=== PATIENT | male | born 1960 | race Caucasian/White ===

== ENCOUNTER → 2016-07-17 | Outpatient (CLI) | payer OTHER ==
[~2016-07-17] MED LIST: IOPAMIDOL (ISOVUE 370) 100 ML BTL IV ONE
--- NOTE | 2016-07-17 17:02 | CT ---
CT Chest Angiogram With Contrast Enhancement and Multiplanar Reconstructions 1557 hours History: Recurrent atrial fibrillation. (I 48.91) Evaluate for pulmonary vein stenoses. Technique: Thin slice multidetector helical CT imaging was performed through the chest while 95 mL I sovue-370 were injected intravenously without complication. The images were then transferred to an in dependent workstation where multiplanar, volume rendering and three-dimensional reconstructions were performed by the interpreting physician and reviewed at multiple windows. Dose reduction techniques w ere utilized. Findings: CT Angiogram for left atrial anatomy: The pulmonary veins are evaluated. There are 2 main pulmonary v eins on the right as well as 2 on the left. The left atrial volume is 139 mL. Pulmonary veins draining right upper lobe: 23 x 16 mm diameter with branching occurring at the origin . The right pulmonary vein draining right lower lun x 17 mm. Bifurcation occurs at the origin. Pulmonary vein draining left upper lun x 15 mm with branching occurring about 10 mm from the matheus gin. Pulmonary vein draining left lower lun x 16 mm in diameter with branching occurring 9 mm from th e origin. There is normal enhancement of the pulmonary arterial vasculature without evidence of intraluminal th rombus. The thoracic aorta has a normal contour without aneurysm or dissection. CT Chest: There are no pulmonary nodules. There are no infiltrates or effusions. There is no hilar or mediastinal lymphadenopathy. Impression: Normal pulmonary vein anatomy, as detailed above. Normal CT Chest.
== END ==
LOC: FIMAGING 15:20
PROVIDERS: ATTEND Internal Medicine Cardiovascular Disease
DX: I48.91 Unspecified atrial fibrillation (principal)
CPT/HCPCS: Q9967

== ENCOUNTER 2016-07-24 10:22 | Observation (INO) | payer OTHER ==
[2016-07-24] MEDS ORDERED: NS 1,000 ML IV ONE (10:33)
--- NOTE | 2016-07-24 10:51 | CPEKG ---
Heart Rate: 71 RR Interval: 845 P-R Interval: 140 QRSD Interval: 90 QT Interval: 376 QTC Interval: 409 P Thurston: 12 QRS [place]: 32 T Wave [place]: 3 EKG Severity - NORMAL ECG - EKG Impression: SINUS RHYTHM EKG Impression: TWI inferiorly, consider inferior ischemia. Electronically Signed By: Oz Mata 24-Jul-2016 17:44:19
[2016-07-24 11:00] LABS: % IMMATURE GRANULYOCYTES 0.2 % (0.0-1.1); ABSOLUTE IMMATURE GRANULOCYTES 0.01 10^3/uL (0.00-0.10); ADD DIFF? NO; ADD MORPH? NO; ADD SCAN? NO; ATYPICAL LYMPHOCYTE FLAG 10 (0-99); FRAGMENT RBC FLAG 0 (0-99); HEMATOCRIT 47.5 % (40.0-51.0); LEFT SHIFT FLG 0 (0-99); LIPEMIA HEMOLYSIS FLAG 90 (0-99); MEAN CELL HEMOGLOBIN 32.3 pg (27.9-34.1); MEAN CELL HEMOGLOBIN CONCENTR. 35.8 g/dL (32.4-36.7); MEAN CELL VOLUME 90.3 fL (81.5-99.8); PLATELET CLUMPS FLAG 0 (0-99); PLATELET COUNT 276 10^3/uL (150-400); RED BLOOD CELL COUNT 5.26 10^6/uL (4.40-6.38); RED CELL DISTRIBUTION WIDTH 11.6 % (11.5-15.2)
[2016-07-24] MEDS ORDERED: BUPIVACAINE 0.5% 30 ML SDV ONE (11:09)
[2016-07-24] MEDS ORDERED: LIDOCAINE 1% 30 ML SDV ONE (11:09)
[2016-07-24] MEDS ORDERED: HEPARIN/DEXTROSE 25,000 UNIT/500 ML BAG IV ONE (11:09)
[2016-07-24] MEDS ORDERED: HEPARIN 10,000 UNIT/10 ML MDV ONE ×2 (11:09→12:28)
[2016-07-24 11:12] LABS: INR 0.96 (0.83-1.16); PROTIME(PATIENT) 12.7 SEC (12.0-15.0)
[2016-07-24 11:13] LABS: APTT 25.2 SEC (23.0-38.0)
[2016-07-24 11:18] LABS: ANION GAP 14 mEq/L (8-16); CARBON DIOXIDE 28 mEq/l (22-31); CHLORIDE 104 mEq/L (97-110); CREATININE 0.9 mg/dL (0.7-1.3); GLOMERULAR FILTRATION RATE > 60; GLUCOSE 87 mg/dL (70-100); MAGNESIUM 2.2 mg/dL (1.6-2.3); POTASSIUM 4.2 mEq/L (3.5-5.2); SODIUM 146 mEq/L (134-144)
[2016-07-24] MEDS ORDERED: PROPOFOL 200 MG/20 ML VIAL ONE ×2 (12:01→13:06)
[2016-07-24] MEDS ORDERED: fentaNYL 100 MCG/2 ML INJ ONE ×2 (12:01→14:19)
[2016-07-24] MEDS ORDERED: ROCURONIUM 50 MG/5 ML VIAL ONE (12:04)
[2016-07-24] MEDS ORDERED: ONDANSETRON 4 MG/2 ML VIAL ONE (12:04)
[2016-07-24] MEDS ORDERED: DEXAMETHASONE 4 MG/ML VIAL ONE (12:04)
[2016-07-24] MEDS ORDERED: MIDAZOLAM 2 MG/2 ML VIAL ONE (12:09)
[2016-07-24] MEDS ORDERED: DESFLURANE 240 ML BOTTLE IH ONE (12:33)
[2016-07-24] MEDS ORDERED: IOPAMIDOL (ISOVUE-370) 150 ML BTL IV ONE (12:35)
[2016-07-24] MEDS ORDERED: PROTAMINE SULFATE 50 MG/5 ML VIAL IVP ONE (14:34)
[2016-07-24] MEDS ORDERED: OXYCODONE/APAP 5/325 TAB PO PRN (15:00)
[2016-07-24] MEDS ORDERED: ONDANSETRON 4 MG/2 ML VIAL IVP PRN (15:00)
--- NOTE | 2016-07-24 15:00 | EPPROC ---
Electrophysiology Procedure Note: ELECTROPHYSIOLOGIC STUDY AND BALLOON-CATHETER MEDIATED CRYOABLATION FOR PAROXYSMAL ATRIAL FIBRILLATION Procedures performed: 16142-56 EP evaluation with RA/RV/LA pace/record, with arrhythmia induction 18808-32 EP evaluation with RA/RV pace record, insert/reposition catheter, with arrhythmia induction 89064 Atrial fibrillation ablation Intracardiac echocardiogram Transseptal puncture Fluoroscopy INDICATION: Paroxysmal atrial fibrillation PROCEDURE: The patient arrived in the Electrophysiology Laboratory in the fasting state. The right groin, left groin and right infraclavicular area were prepped and draped in the usual sterile fashion. Anesthesiologist administered general anesthesia - Dr. Eli Vargas. All catheters were placed percutaneously using the Seldinger technique and advanced into position under fluoroscopic guidance. One #7 Occitan deflectable octapolar electrode catheter was placed in the His-bundle position via the left femoral vein (2mm spacing, IVC electrode for unipolar recordings). This catheter was placed in the coronary sinus after transseptal puncture and later placed in the SVC-R subclavian vein junction to pace the right phrenic nerve during right pulmonary vein ablation. One #8 Occitan AcuNaV ultrasound catheter was placed in the left femoral vein and advanced into the right atrium. One #4 Occitan sheath was inserted into the left femoral artery via percutaneous technique and used for continuous arterial blood pressure monitoring and intermittent ACT determination. Programmed stimulation was performed from the right atrium, left atrium (CS) and right ventricle. There was no evidence of AV accessory pathway. Intracardiac echo evaluation of the left atrium and pulmonary veins was performed. Baseline ACT was drawn and heparin bolus was administered and heparin drip was started prior to transseptal puncture. ACT was checked every 15 minutes and maintained in the range of 350-400 seconds. One 14Fr short sheath was placed in the right femoral vein. One 8Fr SL1 sheath was advanced into the right atrium via the 14Fr short sheath. Transseptal puncture was performed under intracardiac ultrasound, fluoroscopic and hemodynamic guidance placing the sheath into the left atrium. Custer RF needle ( C0 curve) was used. The mean left atrial pressure was 12 mmHg. Pulmonary vein angiogram was done using SL1 sheath. CT angiography of pulmonary veins was done previously. There were distinct RSPV and RIPV and a left common vein. The SL1 sheath was exchanged for a C[employer]will [employer] Flexcath sheath using an Amplatz stiff guide wire. A 28 mm Cryoballoon catheter with a 20 mm Achieve catheter was placed via the sheath into the left atrium. Intracardiac ultrasound and PV angiograms were used to assist in placing the mapping catheter at the antrum of the pulmonary veins. All pulmonary veins were isolated successfully using cryoballoon ablation using freeze/thaw/freeze cycles at 2-3-minute intervals, with good [id number]-rv-vvlivw of isolation. Coumadin ridge/Ligament of Michael region was ablated. Pre and post pulmonary vein recordings were measured on the spiral Achieve catheter to ensure complete pulmonary vein isolation. During the right-sided ablation, phrenic nerve pacing was performed to assess the phrenic nerve strength ( manually and with ICE visualization of liver movement during phrenic capture) and the phrenic nerve was intact throughout the right-sided ablation and at the end of the procedure. An esophageal temperature probe (12 electrode, Circa) was placed by the anesthesiologist at the beginning of the procedure. Esophageal temperature was monitored continuously and cryoablation was interrupted if esophageal temperature was <15 C. Esophagus was close to left common pulmonic vein. Cryoapplications 15 total cryoablation time 2550 s. ICE imaging post ablation was consistent with pre ablation imaging with no changes noted, moreover there was no left atrial/left ventricular thrombus and no pericardial effusion. The catheters were withdrawn. Protamine was given. The sheaths were removed and manual pressure was used for hemostasis. The patient was recovered from anesthesia. There were no complications. The patient was arousable and moving all four extremities at the end of the procedure. CONCLUSIONS: 1. Paroxysmal atrial fibrillation. 2. Successful pulmonary vein isolation procedure (left and right pulmonary vein antrum) using cryoballoon ablation. 3. No apparent complications. Patient Problems: Problems Problem Status Diagnosed Atrial fibrillation Acute
[2016-07-24] MEDS ORDERED: PROMETHAZINE HCL 25 MG/ML VIAL IV ONE (15:25)
[2016-07-24] MEDS ORDERED: MEPERIDINE 25 MG/ML SYR IVP ONE (15:25)
[2016-07-24] MEDS ORDERED: MEPERIDINE 25 MG/ML SYR ONE (15:26)
[2016-07-24] MEDS ORDERED: PROMETHAZINE HCL 25 MG/ML VIAL ONE (15:30)
--- NOTE | 2016-07-24 15:34 | CPEKG ---
Heart Rate: 113 RR Interval: 531 P-R Interval: 144 QRSD Interval: 86 QT Interval: 340 QTC Interval: 467 P [place]: 72 QRS [place]: 63 T Wave [place]: -69 EKG Severity - ABNORMAL ECG - EKG Impression: SINUS TACHYCARDIA EKG Impression: NONSPECIFIC T ABNORMALITIES, LATERAL LEADS Electronically Signed By: Oz Mata 24-Jul-2016 17:43:34
[2016-07-24 16:13] LABS: ANION GAP 11 mEq/L (8-16); CALCIUM 8.4 mg/dL (8.5-10.4); CARBON DIOXIDE 23 mEq/l (22-31); CHLORIDE 108 mEq/L (97-110); CREATININE 0.9 mg/dL (0.7-1.3); GLOMERULAR FILTRATION RATE > 60; GLUCOSE 130 mg/dL (70-100); MAGNESIUM 2.1 mg/dL (1.6-2.3); SODIUM 142 mEq/L (134-144)
[2016-07-24] MEDS: ENOXAPARIN 80 MG/0.8 ML SYR SC SCH (22:27)
[2016-07-25 04:31] LABS: % IMMATURE GRANULYOCYTES 0.3 % (0.0-1.1); ABSOLUTE IMMATURE GRANULOCYTES 0.04 10^3/uL (0.00-0.10); ADD DIFF? NO; ADD MORPH? NO; ADD SCAN? NO; ATYPICAL LYMPHOCYTE FLAG 0 (0-99); FRAGMENT RBC FLAG 0 (0-99); HEMATOCRIT 42.9 % (40.0-51.0); HEMOGLOBIN 15.1 g/dL (13.7-17.5); LEFT SHIFT FLG 0 (0-99); LIPEMIA HEMOLYSIS FLAG 90 (0-99); MEAN CELL HEMOGLOBIN 32.1 pg (27.9-34.1); MEAN CELL HEMOGLOBIN CONCENTR. 35.2 g/dL (32.4-36.7); MEAN CELL VOLUME 91.3 fL (81.5-99.8); PLATELET CLUMPS FLAG 0 (0-99); PLATELET COUNT 246 10^3/uL (150-400); RED CELL DISTRIBUTION WIDTH 11.9 % (11.5-15.2)
[2016-07-25 04:40] LABS: ANION GAP 10 mEq/L (8-16); CALCIUM 8.5 mg/dL (8.5-10.4); CARBON DIOXIDE 25 mEq/l (22-31); CHLORIDE 106 mEq/L (97-110); CREATININE 0.9 mg/dL (0.7-1.3); GLOMERULAR FILTRATION RATE > 60; GLUCOSE 96 mg/dL (70-100); POTASSIUM 4.2 mEq/L (3.5-5.2); SODIUM 141 mEq/L (134-144)
[2016-07-25 04:50] LABS: INR 1.06 (0.83-1.16); PROTIME(PATIENT) 13.7 SEC (12.0-15.0)
[2016-07-25 04:52] LABS: CK-MB INTERPRETATION POSITIVE (NEGATIVE)
--- NOTE | 2016-07-25 08:48 | CPEKG ---
Heart Rate: 92 RR Interval: 652 P-R Interval: 140 QRSD Interval: 88 QT Interval: 360 QTC Interval: 446 P [place]: 43 QRS [place]: 39 T Wave [place]: 14 EKG Severity - NORMAL ECG - EKG Impression: SINUS RHYTHM Electronically Signed By: Shree Becerra 25-Jul-2016 11:19:50
[2016-07-25] MEDS ORDERED: ASPIRIN 81 MG CHEWABLE TAB PO SCH (09:00)
[2016-07-25] MEDS ORDERED: PANTOPRAZOLE SODIUM 40 MG TAB PO SCH (09:00)
[2016-07-25 09:46] VITALS: TEMP 98.6
[2016-07-25] MEDS: ENOXAPARIN 80 MG/0.8 ML SYR SC SCH (09:50)
[2016-07-25 09:57] VITALS: BP 99/69; PULSE 91; RESP 15; O2SAT 100
--- NOTE | 2016-07-25 10:48 | ECHO ---
[id number] [id number] + + [address] : : [facility] [address] : : [phone] + Transesophageal Echocardiographic Report + --------+ :Name: EDGARDO PEDRO JStudy Date: 07/24/2016 12:22 PM : : Hospital Admission Number: [id number] Loca tion: EP: :: 1960 Gender: Male : :Age: 55 yrs Race: WH,White : :Reason For Study: Eval LV Fx : :History: Pre EP : + --------+ Left Ventricle The left ventricle is normal in size. There is normal left ventricular wall thickness. The left ventricular ejection fraction is normal. Right Ventricle The right ventricular systolic function is normal. Atria No left atrial mass or thrombus visualized. No thrombus is detected in the left atrial appendage. Mitral Valve The mitral valve is normal in structure and function. There is no evidence of mitral valve prolapse. There is no mitral valve stenosis. There is no mitral regurgitation noted. Tricuspid Valve The tricuspid valve is normal in structure and function. Aortic Valve The aortic valve is normal in structure and function. There is no aortic stenosis. There is no aortic insufficiency. Pericardium There is a fat pad seen. Conclusion A 2D transesophageal echocardiogram with color flow Doppler was performed. The left ventricular ejection fraction is normal. No left atrial mass or thrombus visualized. No thrombus is detected in the left atrial appendage. The mitral valve is normal in structure and function. The aortic valve is normal in structure and function. There is a fat pad seen. Final Reading Physician: Shree Becerra MD electronically signed on 07/25/2016 10:46 AM Ordering Physician: Shree Becerra Performed By: Shree Becerra MD
--- NOTE | 2016-07-25 10:48 | ECHO ---
[id number] [id number] + + [address] : : [place] [address] : : [phone] + + Adult Echocardiographic Report + ---------+ :Name: EDGARDO PEDRO JStudy Date: 07/25/2016 09:01 AM : : Hospital Admission Number: [id number] Lia lemus: 246: :: 1960 Gender: Male Height: 69 i n : :Age: 55 yrs Race: WH,White Weight: 151 lb : :Reason For Study: Post EP study : : BSA: 1.8 met ers2 : + ---------+ MMode/2D Measurements & Calculations IVSd: 0.90 cm LVIDd: 4.8 cm FS: 36.9 % Ao root diam: 3.1 cm LVPWd: 0.92 cm LVIDs: 3.1 cm EDV(Teich): 109.9 ml LA dimension: 4.0 cm ESV(Teich): 36.6 ml EF(Teich): 66.7 % Normal Measurement Values: + + :LVIDd (3.5-5.7cm) IVSd (0.6-1.1cm) LVPWd (0.6-1.1cm) Aortic Root (2.0-3.7cm)Left Atrium (1.5-4.0cm): :LV Vol(d) (76-115ml) LV Vol(s) (29-48ml) Ejec Fraction (50-65%)PV Fortino (0.6- 1.2m/s) TV Fortino (0.4-1.0m/s) : :MV E Fortino (0.8-1.0m/s)MV A Fortino (0.3-1.0m/s)LVOT Fortino (0.7-1.2m/s) Asc Ao Fortino ( 0.9-1.8m/s) : + + Doppler Measurements & Calculations MV E max fortino: 74.5 cm/sec Ao V2 max: 153.7 cm/sec TR max fortino: 253.8 cm/sec MV A max fortino: 54.3 cm/sec Ao max P.4 mmHg TR max P.8 mmHg MV E/A: 1.4 RAP systole: 5.0 mmHg RVSP(TR): 30.8 mmHg Left Ventricle The left ventricle is normal in size and function. There is normal left ventricular wall thickness. Left ventricular systolic function is normal. Ejection Fraction = 65-70%. No regional wall motion abnormalities noted. Right Ventricle The right ventricle is normal in size and function. Atria The left atrial size is normal. The right atrium is mildly dilated. The interatrial septum is intact with no evidence for an atrial septal defect. Mitral Valve The mitral valve is normal in structure and function. There is no evidence of mitral valve prolapse. There is no mitral valve stenosis. There is trace to mild mitral regurgitation. Tricuspid Valve Normal tricuspid valve. There is mild tricuspid regurgitation. Right ventricular systolic pressure is normal. Aortic Valve The aortic valve is trileaflet. The aortic valve opens well. There is no aortic stenosis. There is no aortic insufficiency. Pulmonic Valve The pulmonic valve is normal in structure and function. There is no pulmonic valvular regurgitation. Great Vessels The aortic root is normal size. Pericardium/Pleural There is no pericardial effusion. Conclusion A complete two-dimensional transthoracic echocardiogram was performed (2D, M-mode, Doppler and color flow Doppler). The left ventricle is normal in size and function. Left ventricular systolic function is normal. Ejection Fraction = 65-70%. The right atrium is mildly dilated. There is trace to mild mitral regurgitation. There is mild tricuspid regurgitation. There is no pericardial effusion. Final Reading Physician: Amado Gauthier signed on 07/25/2016 10:46 AM Ordering Physician: Shree Becerra Performed By: Jacklyn Patiño, JOSEECS
--- NOTE | 2016-07-25 12:02 | GDS ---
[f rep st] DISCHARGE SUMMARY DISCHARGE DIAGNOSIS: 1. Paroxysmal atrial fibrillation status post cryoballoon ablation. 2. History of left anterior descending myocardial bridge. HOSPITAL COURSE: For a detailed H and P, please see prior dictation. Briefly, the patient is a 55-y ear-old male with a history of paroxysmal atrial fibrillation. Symptoms associated with atrial fibri llation include fatigue, shortness of breath, and near syncope. He has had multiple events over the last year. He did not want to be on chronic antiarrhythmic therapy, and therefore he decided to proc eed with an EP study and ablation. This was performed by Dr. Shree Becerra on July 24, 2016. He had a cryoballoon ablation which was uncomplicated. The following morning, he complained of mild, dull chest discomfort which was fleeting. He is currently chest pain-free. He also did have some palpita tions, but was monitored on telemetry and has been in normal sinus rhythm. His EKG the day of discha rge revealed normal sinus rhythm with a heart rate of 92. His echocardiogram showed preserved LV fun ction without any evidence of pericardial effusion. His troponin peaked at 9.930. PHYSICAL EXAMINATION: GENERAL: The patient appears in no acute distress. VITAL SIGNS: Blood press ure 99/69, heart rate 91, oxygen saturation of 100% on room air, afebrile. LUNGS: Clear to ausculta tion. No wheezes, rhonchi, or crackles auscultated. CARDIAC: Regular rate and rhythm without any m urmurs, rubs, or gallops appreciated. EXTREMITIES: Bilateral groins where access was obtained for t he EP study and ablation are clean, intact, without any evidence of infection or hematoma. DISCHARGE MEDICATIONS: Eliquis 5 mg p.o. b.i.d. x3 months, herbal supplement daily, fish oil 1000 mg daily, omeprazole 20 mg daily, vitamin B complex daily, aspirin 81 mg daily. ASSESSMENT AND PLAN: Ortega is currently stable and ready for discharge home. He has been give n groin precautions. He will follow up with Dr. Becerra as scheduled in 2 weeks. He is aware that he is to remain on Eliquis for a minimum of 3 months. He has been given a 90-day prescription prior to ilya apple today. TIME SPENT: Greater than 30 minutes was spent coordinating the patient's care today. /[id number]/MODL
== END 2016-07-25 14:07 | disposition home or self-care (01) ==
LOC: FCATH 10:22 → F2N 14:57 → INTOOBSV 14:57
PROVIDERS: ADMIT Internal Medicine Cardiovascular Disease; ATTEND Internal Medicine Cardiovascular Disease
PROC: 025S3ZZ Destruction of Right Pulmonary Vein, Percutaneous Approach (ICD-10-PCS; principal; 2016-07-24)
PROC: 025T3ZZ Destruction of Left Pulmonary Vein, Percutaneous Approach (ICD-10-PCS; 2016-07-24)
PROC: 02H73MZ Insertion of Cardiac Lead into Left Atrium, Percutaneous Approach (ICD-10-PCS; 2016-07-24)
PROC: 4A0234Z Measurement of Cardiac Electrical Activity, Percutaneous Approach (ICD-10-PCS; 2016-07-24)
PROC: 02K83ZZ Map Conduction Mechanism, Percutaneous Approach (ICD-10-PCS; 2016-07-24)
PROC: B245ZZZ Ultrasonography of Left Heart (ICD-10-PCS; 2016-07-24)
PROC: B246ZZ4 Ultrasonography of Right and Left Heart, Transesophageal (ICD-10-PCS; 2016-07-24)
DX: I48.0 Paroxysmal atrial fibrillation (principal); R53.83 Other fatigue; Q24.5 Malformation of coronary vessels; I25.10 Atherosclerotic heart disease of native coronary artery without angina pectoris; G47.33 Obstructive sleep apnea (adult) (pediatric); E78.5 Hyperlipidemia, unspecified; I49.3 Ventricular premature depolarization; N40.0 Benign prostatic hyperplasia without lower urinary tract symptoms; Z79.01 Long term (current) use of anticoagulants; Z88.0 Allergy status to penicillin
CPT/HCPCS: 93005; 93306; 93312; 93609; 93656; 93662; C1731; C1766; G0378; C1730; C1732; C1733; C1759; C1893; J1100; J1644; J1650; J2250; J2405; J2550; J2704; J2720; J3010; Q9967